=== PATIENT | female | born 1940 | race Caucasian/White ===

== ENCOUNTER → 2017-01-28 | Outpatient (CLI) | payer MEDICARE, OTHER ==
[~2017-01-28] MED LIST: ACET-1600 PO; ASPI-496 PO; B VITAMINS PO; DOCU-131 PO; ESTR10TA4 PO; ESTRADIOL PO; HYDR25TA6 PO; IBUP200T64 PO; L-THYROXINE PO; LIOT5TAB3 PO; MAGNESIUM PO; METR60GE TP; NEBI5TAB2 PO-COUM; OXYC-306 PO; OXYC5CAP2 PO; TURM1POW2 PO; [UNRECOGNIZED DRUG - OTHER] EACHEYE
[2017-01-28 15:57] LABS: HEMATOCRIT 43.2 % (34.6-47.8); HEMOGLOBIN 14.8 g/dL (11.7-16.4); WHITE BLOOD COUNT 8.2 x10^3/uL (3.4-10)
[2017-01-28 15:59] LABS: PATH.CAST-FLAG NOT PRESENT; SPERM-FLAG NOT PRESENT; SRC-FLAG NOT PRESENT; XTAL-FLAG NOT PRESENT; YLC-FLAG NOT PRESENT
[2017-01-28 16:05] LABS: ASPARTATE AMINO TRANSFERASE 15 U/L (15-37); BLOOD UREA NITROGEN 16 mg/dL (7-18)
== END | disposition home or self-care (01) ==
LOC: STAR 14:45
PROVIDERS: ATTEND Orthopaedic Surgery Adult Reconstructive Orthopaedic Surgery
DX: Z01.818 Encounter for other preprocedural examination (principal); M17.11 Unilateral primary osteoarthritis, right knee; J45.909 Unspecified asthma, uncomplicated; E07.9 Disorder of thyroid, unspecified; R79.1 Abnormal coagulation profile; Z79.899 Other long term (current) drug therapy
CPT/HCPCS: 36415; 80053; 81001; 85025; 85610; 85730; 87081; 87086; 93005

== ENCOUNTER 2017-02-02 05:28 | Inpatient (IN) | payer MEDICARE, OTHER ==
[2017-01-28 15:52] VITALS: BP 135/93
[~2017-02-02] VITALS: Ht 162.6 cm; Wt 82.5 kg
[~2017-02-02 05:28] MED LIST changes: -ACET-1600 PO; -DOCU-131 PO; -OXYC5CAP2 PO
[2017-02-02] MEDS ORDERED: LACTATED RINGERS 1,000 ML IV SCH (06:11)
[2017-02-02] MEDS ORDERED: VANCOMYCIN PER PHARMACY MC STA (06:13)
[2017-02-02] MEDS ORDERED: VANCOMYCIN PMX 1GM/200ML 200 ML IV ONE (06:30)
[2017-02-02] MEDS ORDERED: LIDOCAINE 1%, 2ML SQ PRN (06:30)
[2017-02-02] MEDS ORDERED: KETOROLAC 60 MG/2 ML ONE (07:01)
[2017-02-02] MEDS ORDERED: TRANEXAMIC ACID 100 MG/ML, 10ML ONE ×2 (07:01)
[2017-02-02] MEDS ORDERED: SODIUM CHLORIDE 0.9% 0 ML ONE (07:02)
[2017-02-02] MEDS ORDERED: MIDAZOLAM 1 MG/ML, 2ML ONE (07:02)
[2017-02-02] MEDS ORDERED: KETAMINE 10 MG/ML, 20ML ONE (07:02)
[2017-02-02] MEDS ORDERED: EPINEPHRINE 1 MG/ML, 1ML ONE (07:02)
[2017-02-02] MEDS ORDERED: BACITRACIN 50,000 UNIT ONE ×2 (07:02→08:13)
[2017-02-02] MEDS ORDERED: FENTANYL PF 100 MCG/2ML ONE ×3 (07:02→10:01)
[2017-02-02] MEDS ORDERED: BUPIVACAINE/PF 0.25% ONE (07:04)
[2017-02-02] MEDS ORDERED: LIDOCAINE-MPF 2% ,5ML ONE ×2 (07:04→08:40)
[2017-02-02] MEDS ORDERED: DEXAMETHASONE 4 MG/ML, 1ML ONE (07:05)
[2017-02-02] MEDS ORDERED: CEFAZOLIN 1,000 MG ONE (07:05)
[2017-02-02] MEDS ORDERED: ONDANSETRON 2MG/ML, 2ML ONE (07:05)
[2017-02-02] MEDS ORDERED: PROPOFOL 10 MG/ML, 20ML ONE (07:05)
[2017-02-02] MEDS ORDERED: ROPivacaine/PF 0.2%, 10 ML ONE (07:07)
[2017-02-02] MEDS ORDERED: PROPOFOL 50 ML ONE ×2 (07:35→09:25)
[2017-02-02] MEDS ORDERED: BACITRACIN 50,000 UNIT IM ONE (08:38)
[2017-02-02] MEDS ORDERED: LABETALOL 5MG/ML, 20ML IV PRN (09:00)
[2017-02-02] MEDS ORDERED: LORazepam 2 MG/ML, 1ML IVPush PRN (09:00)
[2017-02-02] MEDS ORDERED: hydrALAzine 20 MG/ML, 1ML IV PRN (09:00)
[2017-02-02] MEDS ORDERED: ACETAMINOPHEN 325 MG TABLET PO PRN (09:00)
[2017-02-02] MEDS ORDERED: MEPERIDINE/PF 25MG/0.5ML IVPush PRN (09:00)
[2017-02-02] MEDS ORDERED: MIDAZOLAM 1 MG/ML, 2ML IV PRN (09:00)
[2017-02-02] MEDS ORDERED: DIAZEPAM 5 MG/ML, 2ML IVPush PRN (09:00)
[2017-02-02] MEDS ORDERED: ONDANSETRON 2MG/ML, 2ML IVPush PRN (09:00)
[2017-02-02] MEDS ORDERED: PROMETHAZINE 25 MG/ML, 1ML IV PRN (09:00)
[2017-02-02] MEDS ORDERED: OXYcodone 5 MG/5 ML ORAL.SOL UDC ONE ×2 (10:01→10:44)
[2017-02-02] MEDS ORDERED: ACETAMINOPHEN 650 MG/20.3 ML UDC ONE (10:01)
[2017-02-02] MEDS: FENTANYL PF 100 MCG/2ML IV PRN ×2 (10:04→10:11)
[2017-02-02] MEDS: OXYcodone 5 MG/5 ML ORAL.SOL UDC PO PRN ×2 (10:04→10:45)
[2017-02-02] MEDS ORDERED: HYDROmorphone 2 MG/ML, 1ML ONE (10:14)
[2017-02-02] MEDS: HYDROmorphone 1 MG/ML, 1ML IV PRN ×4 (10:17→23:05)
[2017-02-02] MEDS ORDERED: MEPERIDINE/PF 25MG/0.5ML ONE (10:20)
[2017-02-02] MEDS ORDERED: MAGNESIUM HYDROXIDE 8%, 30ML UDC PO PRN (10:30)
[2017-02-02] MEDS ORDERED: BISACODYL 10 MG SUPP PR PRN (10:30)
[2017-02-02] MEDS ORDERED: LORazepam 1MG TABLET PO PRN (10:30)
[2017-02-02] MEDS ORDERED: DIAZEPAM 5 MG TABLET PO PRN (10:30)
[2017-02-02] MEDS ORDERED: ZOLPIDEM 5MG TABLET PO PRN (10:30)
[2017-02-02] MEDS ORDERED: ALUMINUM/MAG/SIMETHICONE 30 ML UDC PO PRN (10:30)
[2017-02-02] MEDS ORDERED: SENNA/DOCUSATE TABLET PO PRN (10:30)
[2017-02-02] MEDS ORDERED: PROMETHAZINE 12.5 MG SUPP PR PRN (10:30)
[2017-02-02] MEDS ORDERED: DIPHENHYDRAMINE 25 MG CAPSULE PO PRN (10:30)
[2017-02-02] MEDS ORDERED: ONDANSETRON 2MG/ML, 2ML IV PRN (10:30)
[2017-02-02] MEDS ORDERED: PROMETHAZINE 25 MG/ML, 1ML IM PRN (10:30)
[2017-02-02] MEDS ORDERED: ONDANSETRON 4 MG TABLET PO PRN (10:30)
[2017-02-02] MEDS: ACETAMINOPHEN 500 MG TABLET PO SCH ×2 (12:22→19:50)
[2017-02-02] MEDS: SODIUM CHLORIDE 0.9% 1,000 ML IV SCH ×2 (12:22→22:00)
[2017-02-02 13:07] VITALS: BP 135/77
[2017-02-02] MEDS: OXYcodone IR 5MG TABLET PO PRN ×3 (15:34→23:43)
[2017-02-02] MEDS: CEFAZOLIN PMX 2GM/50ML 50 ML IVPB SCH ×2 (15:34→23:04)
[2017-02-02] MEDS: ASPIRIN 81 MG TABLET EC PO SCH (17:08)
[2017-02-02] MEDS: DOCUSATE 100 MG CAPSULE PO SCH (19:50)
[2017-02-02 20:44] VITALS: BP 117/59
[2017-02-02] MEDS ORDERED: NEBIVOLOL HCL 5 MG TABLET PO SCH (21:00)
[2017-02-02 23:07] VITALS: BP 120/60
[2017-02-03] MEDS: ACETAMINOPHEN 500 MG TABLET PO SCH (03:34)
[2017-02-03] MEDS: OXYcodone IR 5MG TABLET PO PRN ×2 (03:34→08:12)
[2017-02-03 03:41] VITALS: BP 106/55
[2017-02-03] MEDS: HYDROmorphone 1 MG/ML, 1ML IV PRN ×2 (04:43→09:23)
[2017-02-03] MEDS: ASPIRIN 81 MG TABLET EC PO SCH (04:54)
[2017-02-03 05:27] LABS: BLOOD UREA NITROGEN 9 mg/dL (7-18)
[2017-02-03] MEDS ORDERED: LEVOTHYROXINE 25 MCG TABLET PO SCH (06:00)
[2017-02-03 07:49] VITALS: BP 115/59
[2017-02-03] MEDS: SODIUM CHLORIDE 0.9% 1,000 ML IV SCH (08:00)
[2017-02-03] MEDS: DOCUSATE 100 MG CAPSULE PO SCH (08:11)
[2017-02-03] MEDS ORDERED: LIOTHYRONINE 5 MCG TABLET PO SCH (09:00)
[2017-02-03] MEDS ORDERED: KETOROLAC 30 MG/1 ML IV SCH (10:30)
[2017-02-03 11:26] VITALS: BP 111/72
[2017-02-03] MEDS ORDERED: ACET-1600 PO (11:38)
[2017-02-03] MEDS ORDERED: ASPI-496 PO (11:38)
[2017-02-03] MEDS ORDERED: DOCU-131 PO (11:39)
[2017-02-03] MEDS ORDERED: OXYC5CAP2 PO (11:39)
[2017-02-04] MEDS ORDERED: HYDROCHLOROTHIAZIDE 25 MG TABLET PO SCH (09:00)
== END 2017-02-03 12:00 | disposition home or self-care (01) | DRG 469 ==
LOC: ORIP 05:28 → 4NOR 11:06 → DCLOUNGE 02-03 11:36
PROVIDERS: ADMIT Orthopaedic Surgery Adult Reconstructive Orthopaedic Surgery; ATTEND Orthopaedic Surgery Adult Reconstructive Orthopaedic Surgery
PROC: 0SRC0J9 Replacement of Right Knee Joint with Synthetic Substitute, Cemented, Open Approach (ICD-10-PCS; principal; 2017-02-02 07:30)
DX: M17.11 Unilateral primary osteoarthritis, right knee (principal); E43 Unspecified severe protein-calorie malnutrition; M16.11 Unilateral primary osteoarthritis, right hip
CPT/HCPCS: 36415; 80048; 82040; 85018; C1713; J0171; J0690; J1100; J1170; J1885; J2175; J2250; J2405; J2704; J2795; J3010; J3370; J3490; C1776; J7030; J7120

== ENCOUNTER → 2017-11-17 | Outpatient (CLI) | payer MEDICARE, OTHER ==
[~2017-11-17] MED LIST changes: +ACET-1600 PO; +Amoxicillin PO; +CARB1DRO8 EACHEYE; +CETI-158 PO; +DOCU-131 PO; +GLUC-88 PO; +HYPO40SP TP; +IBUP200C8 PO; +LEVO25TA4 PO; +LIFI1DRO EACHEYE; +Magnesium PO; +NEBI5TAB2 PO; -NEBI5TAB2 PO-COUM; +OXYC5CAP2 PO; +POTA20TA89 PO; +ROSU5TAB PO; +UBID1CAP43 PO; +VITA1TAB19 PO; +[UNRECOGNIZED DRUG - OTHER] PO; +curcumin PO
[2017-11-17 12:33] LABS: BASOPHILS # (AUTO) 0.06 x10^3/uL (0-0.1); BASOPHILS % (AUTO) 1 % (0-1); EOSINOPHILS # (AUTO) 0.23 x10^3/uL (0-0.4); EOSINOPHILS % (AUTO) 2 % (1-7); LYMPHOCYTES # (AUTO) 2.58 x10^3/uL (1-3.4); LYMPHOCYTES % (AUTO) 21 % (22-44); MD NO; MEAN CORPUSCULAR HEMOGLOBIN 29.6 pg (27.0-34.8); MEAN CORPUSCULAR HGB CONC 33.6 g/dL (32.4-35.8); MEAN CORPUSCULAR VOLUME 87.9 fL (80-100); MEAN PLATELET VOLUME 7.7 fL (7.4-10.4); MONOCYTES # (AUTO) 0.66 x10^3/uL (0.2-0.8); MONOCYTES % (AUTO) 5 % (2-9); NEUTROPHILS # (AUTO) 8.92 x10^3/uL (1.8-6.8); NEUTROPHILS % (AUTO) 72 % (42-75); PLATELET COUNT 261 x10^3/uL (130-400); RED BLOOD COUNT 5.01 x10^6/uL (3.82-5.3); RED CELL DISTRIBUTION WIDTH 16.7 % (9.6-15.2)
[2017-11-17 12:36] LABS: MICROSCOPIC AUTO
[2017-11-17 12:42] LABS: ALBUMIN 3.7 g/dL (3.4-5.0); ANION GAP 7 mmol/L (5-15); CALCIUM 9.1 mg/dL (8.5-10.1); CHLORIDE 104 mmol/L (98-107)
[2017-11-17 12:43] LABS: PROTHROMBIN TIME 10.4 Seconds (9.6-11.5)
[2017-11-17 12:46] LABS: ALANINE AMINOTRANSFERASE 28 U/L (12-78); ALKALINE PHOSPHATASE 81 U/L (45-117); BILIRUBIN,TOTAL 0.9 mg/dL (0.2-1.0); CREATININE 0.76 mg/dL (0.55-1.02); TOTAL PROTEIN 6.6 g/dL (6.4-8.2)
[2017-11-17 12:51] LABS: CULTURE INDICATED? YES
== END | disposition home or self-care (01) ==
LOC: STAR 10:22
PROVIDERS: ATTEND Orthopaedic Surgery Adult Reconstructive Orthopaedic Surgery
DX: Z01.818 Encounter for other preprocedural examination (principal); M17.12 Unilateral primary osteoarthritis, left knee; Z87.891 Personal history of nicotine dependence; Z88.2 Allergy status to sulfonamides
CPT/HCPCS: 36415; 80053; 81001; 85025; 85610; 85730; 87081; 87086; 93005

== ENCOUNTER 2017-11-30 05:45 | Observation (INO) | payer MEDICARE, OTHER ==
[~2017-11-30] VITALS: Ht 162.6 cm; Wt 83.2 kg
[2017-11-30] MEDS ORDERED: LACTATED RINGERS 1,000 ML IV SCH (06:27)
[2017-11-30 06:34] VITALS: BP 152/90
[2017-11-30] MEDS ORDERED: TRANEXAMIC ACID 100 MG/ML, 10ML ONE ×2 (06:44)
[2017-11-30] MEDS ORDERED: BACITRACIN 50,000 UNIT ONE (06:45)
[2017-11-30] MEDS ORDERED: ROPIvacaine/PF 0.2%, 20 ML ONE (06:46)
[2017-11-30] MEDS ORDERED: KETOROLAC 60 MG/2 ML ONE (06:46)
[2017-11-30] MEDS ORDERED: SODIUM CHLORIDE 0.9% 0 ML ONE (06:46)
[2017-11-30] MEDS ORDERED: EPINEPHRINE 1 MG/ML, 1ML ONE (06:47)
[2017-11-30] MEDS ORDERED: MIDAZOLAM 1 MG/ML, 2ML ONE (06:56)
[2017-11-30] MEDS ORDERED: FENTANYL PF 250 MCG/5ML ONE ×4 (06:56→12:30)
[2017-11-30] MEDS ORDERED: ACETAMINOPHEN 500 MG TABLET PO ONE (07:30)
[2017-11-30] MEDS ORDERED: GABAPENTIN 300 MG CAPSULE PO ONE (07:30)
[2017-11-30] MEDS ORDERED: CEFAZOLIN 1,000 MG ONE (07:36)
[2017-11-30] MEDS ORDERED: PROPOFOL 10 MG/ML, 20ML ONE (07:36)
[2017-11-30] MEDS ORDERED: ONDANSETRON 2MG/ML, 2ML ONE (07:36)
[2017-11-30] MEDS ORDERED: DEXAMETHASONE 4 MG/ML, 5ML ONE (07:36)
[2017-11-30] MEDS ORDERED: hydrALAzine 20 MG/ML, 1ML IV PRN (08:00)
[2017-11-30] MEDS ORDERED: OXYcodone 5 MG/5 ML ORAL.SOL UDC PO PRN (08:00)
[2017-11-30] MEDS ORDERED: PROMETHAZINE 25 MG/ML, 1ML IV PRN (08:00)
[2017-11-30] MEDS ORDERED: LORazepam 2 MG/ML, 1ML IVPush PRN (08:00)
[2017-11-30] MEDS ORDERED: LABETALOL 5MG/ML, 20ML IV PRN (08:00)
[2017-11-30] MEDS ORDERED: BACITRACIN 50,000 UNIT IM ONE (08:30)
[2017-11-30] MEDS ORDERED: HYDROmorphone 2 MG/ML, 1ML ONE (09:57)
[2017-11-30] MEDS ORDERED: OXYcodone 5 MG/5 ML ORAL.SOL UDC ONE (09:58)
[2017-11-30] MEDS: HYDROmorphone 1 MG/ML, 1ML IV PRN ×4 (09:59→10:34)
[2017-11-30] MEDS ORDERED: ZOLPIDEM 5MG TABLET PO PRN (10:00)
[2017-11-30] MEDS ORDERED: HYDROcodone/APAP 5/325 TABLET PO PRN (10:00)
[2017-11-30] MEDS ORDERED: SENNA/DOCUSATE TABLET PO PRN (10:00)
[2017-11-30] MEDS ORDERED: ALUMINUM/MAG/SIMETHICONE 30 ML UDC PO PRN (10:00)
[2017-11-30] MEDS ORDERED: MAGNESIUM HYDROXIDE 8%, 30ML UDC PO PRN (10:00)
[2017-11-30] MEDS ORDERED: DIPHENHYDRAMINE 50 MG CAPSULE PO PRN (10:00)
[2017-11-30] MEDS ORDERED: ONDANSETRON 4 MG TABLET PO PRN (10:00)
[2017-11-30] MEDS ORDERED: TRANEXAMIC ACID 1,000 MG in SODIUM CHLORIDE 0.9% 100 ML IVPB ONE (10:00)
[2017-11-30] MEDS ORDERED: HYDROmorphone 1 MG/ML, 1ML IV PRN (10:00)
[2017-11-30] MEDS ORDERED: ONDANSETRON 2MG/ML, 2ML IV PRN (10:00)
[2017-11-30] MEDS ORDERED: PROMETHAZINE 12.5 MG SUPP PR PRN (10:00)
[2017-11-30] MEDS ORDERED: PROMETHAZINE 25 MG/ML, 1ML IM PRN (10:00)
[2017-11-30] MEDS ORDERED: DIPHENHYDRAMINE 50 MG/ML, 1ML ONE (10:01)
[2017-11-30] MEDS ORDERED: DIAZEPAM 5 MG TABLET ONE (10:10)
[2017-11-30] MEDS: DIAZEPAM 5 MG TABLET PO PRN ×2 (10:15→22:22)
[2017-11-30] MEDS: FENTANYL PF 100 MCG/2ML IV PRN ×2 (10:25→10:34)
[2017-11-30] MEDS ORDERED: FENTANYL PF 100 MCG/2ML ONE (10:27)
[2017-11-30 11:15] VITALS: BP 152/72
[2017-11-30 12:00] VITALS: BP 103/63
[2017-11-30] MEDS: OXYcodone IR 5MG TABLET PO PRN ×3 (14:50→23:52)
[2017-11-30] MEDS: D5%-0.45% NACL 1,000 ML IV SCH ×2 (16:32→23:52)
[2017-11-30] MEDS: CEFAZOLIN 2,000 MG in SODIUM CHLORIDE 0.9% 50 ML IVPB SCH ×2 (16:49→23:52)
[2017-11-30] MEDS: ASPIRIN 81 MG TABLET EC PO SCH (17:28)
[2017-11-30 20:05] VITALS: BP 104/64
[2017-11-30] MEDS ORDERED: NEBIVOLOL HCL 5 MG TABLET PO SCH (21:00)
[2017-11-30] MEDS: METRONIDAZOLE GEL 1%, 60GM TP SCH (21:00)
[2017-11-30] MEDS: ACETAMINOPHEN 650 MG/20.3 ML UDC PO PRN (23:51)
[2017-12-01] VITALS: BP 118/71
[2017-12-01] MEDS: ACETAMINOPHEN 650 MG/20.3 ML UDC PO PRN (04:07)
[2017-12-01] MEDS: OXYcodone IR 5MG TABLET PO PRN ×2 (04:07→09:10)
[2017-12-01 04:52] VITALS: BP 112/68
[2017-12-01] MEDS: ASPIRIN 81 MG TABLET EC PO SCH (06:12)
[2017-12-01] MEDS ORDERED: SENN1TAB8 PO (06:52)
[2017-12-01] MEDS ORDERED: OXYC5TAB3 PO (06:52)
[2017-12-01 07:17] VITALS: BP 93/58
[2017-12-01] MEDS ORDERED: ATORVASTATIN 10 MG TABLET PO SCH (09:00)
[2017-12-01] MEDS ORDERED: LIOTHYRONINE 5 MCG TABLET PO SCH (09:00)
[2017-12-01] MEDS ORDERED: HYDROCHLOROTHIAZIDE 25 MG TABLET PO SCH (09:00)
[2017-12-01] MEDS: METRONIDAZOLE GEL 1%, 60GM TP SCH (09:00)
[2017-12-01] MEDS ORDERED: LEVOTHYROXINE 25 MCG TABLET PO SCH (09:00)
[2017-12-01] MEDS ORDERED: KETOROLAC 30 MG/1 ML IV SCH (10:00)
[2017-12-01 11:06] VITALS: BP 108/65
== END 2017-12-01 11:34 | disposition home or self-care (01) ==
LOC: OUT 05:45 → ORIP 09:45 → 4NOR 11:10 → DCLOUNGE 12-01 11:19
PROVIDERS: ADMIT Orthopaedic Surgery Adult Reconstructive Orthopaedic Surgery; ATTEND Orthopaedic Surgery Adult Reconstructive Orthopaedic Surgery
DX: M17.12 Unilateral primary osteoarthritis, left knee (principal); Z96.651 Presence of right artificial knee joint
CPT/HCPCS: 27447; 36415; 73560; 85014; 85018; 96365; 96366; 96375; 97116; 97150; 97161; 97165; C1713; C1776; G0378; G8978; G8979; G8980; J0171; J0690; J1100; J1170; J1885; J2405; J2704; J2795; J3010; J2250